=== PATIENT | female | born 1960 | race Native Hawaiian/Other Pacific Islander ===

== ENCOUNTER → 2016-08-31 | Outpatient (CLI) | payer OTHER ==
[~2016-08-31] MED LIST: ACET-1138 PO; ANAS1TAB19 PO; CALC500C70 PO; FSMD/70 PO
--- NOTE | 2016-09-01 13:34 | MAMMOGRAPHY REPORT ---
UNILATERAL LEFT DIGITAL SCREENING MAMMOGRAM TOMOSYNTHESIS WITH CAD: 08/31/2016 CLINICAL HISTORY: Routine screening examination of the left breast. Personal history of right breas t cancer status post mastectomy. TECHNIQUE: Left breast tomosynthesis in addition to standard 2D mammography and a left XCCL 2-D imag e were obtained. Current study was also evaluated with a Computer Aided Detection (CAD) system. COMPARISON: Comparison is made to exams dated: 08/27/2015 mammogram, 01/28/2014 mammogram, 12/23/2011 mammogram, 01/18/2013 mammogram, 09/01/2015 mammogram, and 09/01/2015 ultrasound - [facility]. BREAST COMPOSITION: There are scattered areas of fibroglandular density in the left breast. FINDINGS: There is mild vascular calcification and a benign rim calcification in the left breast. No suspicious mass, architectural distortion or cluster of suspicious microcalcifications is seen. IMPRESSION: ACR BI-RADS CATEGORY 1: NEGATIVE There is no mammographic evidence of malignancy. A 1 year screening mammogram is recommended. The p atient will receive written notification of the results. Approximately 10% of breast cancers are not detected with mammography. A negative mammographic repor t should not delay biopsy if a clinically suggestive mass is present. Shelley Valles M.D. ay/:08/31/2016 16:45:38 Market Developer: Keli THOMPSON([place])([place]), [facility] letter sent: Normal 1/2 BI-RADS Code: ACR BI-RADS Category 1: Negative
== END | disposition home or self-care (01) ==
LOC: C.MAMM 16:27
PROVIDERS: ATTEND Family Medicine
DX: Z12.31 Encounter for screening mammogram for malignant neoplasm of breast (principal); Z85.3 Personal history of malignant neoplasm of breast

== ENCOUNTER → 2016-09-06 | Outpatient (CLI) | payer OTHER | END | disposition home or self-care (01) | LOC: C.PAPS 11:38 | PROVIDERS: ATTEND Obstetrics & Gynecology | DX: Z12.4 Encounter for screening for malignant neoplasm of cervix (principal) ==

== ENCOUNTER → 2016-10-14 | Outpatient (CLI) | payer OTHER ==
[2016-10-14 16:40] LABS: HEMATOCRIT 38.6 % (37-47); MEAN CELL VOLUME 84.5 fL (80-100); MEAN CORPUSCULAR HEMOGLOBIN 29.8 pg (25-34); MEAN CORPUSCULAR HGB CONC 35.2 g/dl (32-36); PLATELET COUNT 137 K/uL (130-400); RED BLOOD COUNT 4.57 M/uL (4.2-5.4); WHITE BLOOD COUNT 4.76 K/uL (4.8-10.8)
[2016-10-14 16:50] LABS: PARTIAL THROMBOPLASTIN RATIO 1.1; PROTHROMBIN TIME (PATIENT) 10.7 SECONDS (9.0-12.0)
== END | disposition home or self-care (01) ==
LOC: C.CPL 15:35
PROVIDERS: ATTEND Physician Assistant
DX: Z01.810 Encounter for preprocedural cardiovascular examination (principal)

== ENCOUNTER → 2016-10-26 | Day surgery (SDC) | payer OTHER ==
[2016-10-22 15:38] VITALS: Ht 167.6 cm; Wt 83.6 kg
[~2016-10-26] VITALS: Ht 167.6 cm; Wt 83.6 kg
[~2016-10-26] MED LIST changes: -ACET-1138 PO; +ACETAMINOPHEN 325 MG TAB PO PRN; +ACETAMINOPHEN IV 1,000 MG in EMPTY BAG 0 ML IV PRN; +ACETAMINOPHEN IV 650 MG in EMPTY BAG 0 ML IV PRN; +ATROPINE SULFATE 0.1 MG/ML 5ML SYR IV PRN; +BACITRACIN 50000 UNIT VIAL ONE; +BUPIVACAINE 0.25% 2.5MG/ML PF 10 ML VIAL INFIL ONE; +CEFAZOLIN 2000 MG/60 ML D5W IV SCH; +CEFAZOLIN SOD 1 GM VIAL ONE; +EpHEDrine SULFATE INJ 50 MG/ML AMP IV PRN; +FENTANYL CITRATE INJ 50 MCG/1 ML 2 ML VIAL ONE; +GENTAMICIN SULFATE 40 MG/ML 2 ML VIAL ONE; +GLYCOPYRROLATE INJ 0.2 MG/ML VIAL ONE; +LACTATED RINGER'S 1000ML 1,000 ML IV SCH; +LIDOCAINE HCL 2% 2 ML VIAL (20MG/ML) ONE; +LIDOCAINE/EPINEPHRINE 1% INJ 50 ML VIAL ONE; +METOCLOPRAMIDE HCL INJ 5 MG/ML 2 ML VIAL IV PRN; +MIDAZOLAM HCL 1 MG/ML 2ML VIAL ONE; +NEOSTIGMINE METHYLSULFATE 5 MG/5 ML SYR ONE; +ONDANSETRON INJ 2 MG/ML 2 ML VIAL IV PRN; +ONDANSETRON INJ 2 MG/ML 2 ML VIAL ONE; +OXYCODONE/ACETAMINOPHEN 5-325 TAB PO PRN; +PROPOFOL IV EMULSION 10 MG/ML 20 ML VIAL IV ONE; +SCOPOLAMINE 1.5 MG TDSY TD ONE; +SODIUM CHLORIDE 0.9% 1000ML 1,000 ML IV SCH; +SODIUM CHLORIDE 0.9% INJ 10 ML VIAL ONE
--- NOTE | 2016-10-26 10:13 | History & Physical Bridge - [place] ---
H&P Re-Evaluation Bridge Note: I have examined the patient, reviewed the History & Physical and in the interval since the performance of the History & Physical I have noted the following changes of clinical significance: Port removal will be performed by Dr. Braun.
--- NOTE | 2016-10-26 12:05 | OPERATIVE REPORT ---
DATE OF OPERATION: 10/26/2016 NAME OF OPERATION: Port removal. PREOPERATIVE DIAGNOSIS: Port catheter in place with history of breast cancer. POSTOPERATIVE DIAGNOSIS: Same. STAFF SURGEON: Dr. Braun. TOP TAPER MACHINE: Dr. Carlisle and Sherita Rudd. ANESTHESIA: General. PROCEDURE IN DETAIL: The patient was brought in the operating room and placed on the operating table in supine position. Her chest was prepped and draped in usual fashion bilaterally. She had port in place in the left upper chest. The skin and subcutaneous tissue were anesthetized using 1% lidocaine with epinephrine. Incision made, carrying dissection down to the port, dissecting it from the capsule. The catheter was then removed with the port and then a tunnel was oversewn using 2-0 chromic catgut suture. Then the subcutaneous tissue reapproximated using 2-0 chromic catgut suture. Then the incision was closed by Dr. Carlisle and Sherita. I attest to the content of the Intraoperative Record and any orders documented therein. Any exceptio ns are noted below.
--- NOTE | 2016-10-26 13:34 | Discharge Instructions ---
Discharge Instructions Date of Service Oct 26, 2016. Admission Reason for Admission: Encounter For Breast Reconstruction Following Mast Discharge Discharge Diagnosis / Problem: encounter for breast reconstruction following mastectomy Discharge Goals Goal(s): Decrease discomfort Activity Recommendations Activity Limitations: per Instructions/Follow-up section ACTIVITY RECOMMENDATIONS: __Normal activities _x_No bending, lifting or straining __No driving __Driving allowed when you are off pain medications _x_Walking permitted __You should have help at home for ___ days DRESSINGS: __No dressings required _x_Keep dressings dry/in place until first office visit __Remove dressings ___ and leave dressings off __Apply ice ___ days __Remove dressings and reapply garment __Apply antibiotic ointment (Bacitracin, Neosporin, etc) to wounds 3-4 times/ day for 10 days BATHING: _x_Keep dressings dry _x_Sponge bathing permitted __Showering permitted _x_No swimming, hot tubs or soaking in a tub MEDICATIONS: Resume previous medications unless instructed otherwise by your surgeon. _x_Do not use aspirin, Motrin, Advil or Ibuprofen as these may promote bleeding. Please use Tylenol. _x_Prescription(s) provided: pain medication and antibiotics were provided at your last office visit. Begin antibiotics today OTHER INSTRUCTIONS: __Record drain output 2-3 times per day SPECIAL CARE INSTRUCTIONS: * It is normal to have a mild fever after surgery. If your temperature is higher than 101.5 degrees F, please call the office at [phone]. * Constipation is a typical side effect of pain medication. An over-the- counter stool softener will help relieve this. * Leaking around surgical drains may occur and should not cause concern. Sometimes these drains become clogged. If this happens, remove the bulb and milk the clot out of the tube, then replace the bulb. * Drainage from wounds after liposuction is normal and should be expected. Garments will become soiled. You should protect furniture and bedding. This drainage should mostly subside within 2-3 days. Leave garments in place unless instructed to remove them. * If you have unusual drainage from a wound or are concerned you have an infection or have any questions or concerns, please call the office at [phone]. FOLLOW UP VISIT: If not already scheduled, please call the office, , when you return home after surgery to schedule an appointment to be seen in _2__ days. . Current Hospital Diet Patient's current hospital diet: Discharge Diet Recommended Diet: Regular Diet Procedures Procedures Performed: Right Breast Implant Exchange For Silicone Breast Implant, Left Chest Wall And Left Breast Mastopexy by Dr. Carlisle; Removal A Port by Dr. Braun Pending Studies Studies pending at discharge: yes List of pending studies: pathologyn of left breast skin Medical Emergencies . Who to Call and When: Medical Emergencies: If at any time you feel your situation is an emergency, please call 911 immediately. . Non-Emergent Contact Non-Emergency issues call your: Primary Care Provider, Surgeon . "Provider Documentation" section prepared by Sherita Rudd. VTE Core Measure Inpt VTE Proph given/why not?: SCD's [place] Drug Monitoring Program Search Results: no issues identified
--- NOTE | 2016-10-26 13:49 | [facility] Post Operative Brief Note ---
Immediate Operative Summary Operative Date Oct 26, 2016. Pre-Operative Diagnosis Breast Reconstruction Following Mastectomy Post-Operative Diagnosis Same Procedure(s) Performed Right Breast Implant Exchange For Silicone Breast Implant, Left Chest Wall And Left Breast Mastopexy by Dr. Carlisle; Removal A Port by Dr. Braun Surgeon Dr. Carlisle, Dr. Braun Construction Services Technician Surgeon(s) Michelle Rudd PA-C Estimated Blood Loss 20 ml Findings 590 cc Ultra high profile implant selected for right, Left NAC pink and viable at close of case Specimens A.) Explanted A-Port B.) Left Breast Tissue Anesthesia General Complication(s) None Disposition Recovery Room / PACU
[2016-10-26] MEDS: FENTANYL CITRATE INJ 50 MCG/1 ML 2 ML VIAL IV PRN ×2 (14:28→14:33)
[2016-10-26 15:08] VITALS: TEMP 36.1
[2016-10-26 15:47] VITALS: BP 136/83; PULSE 59; O2SAT 99
--- NOTE | 2016-10-26 15:51 | Anesthesia Progress Nt - [facility] ---
Anesthesia Post Op Note Date & Time Oct 26, 2016 at 15:51 Vital Signs Pain Intensity: 4 Vital Signs Past 12 Hours Date Time Temp Pulse Resp B/P Pulse Ox O2 Delivery O2 Flow Rate FiO2 10/26/16 15:47 59 16 136/83 99 Room Air 10/26/16 15:08 36.1 65 16 145/85 95 Room Air 10/26/16 14:57 60 17 10/26/16 14:57 61 17 97 10/26/16 14:56 36.1 65 20 129/44 96 Room Air 10/26/16 14:56 129/44 10/26/16 14:52 63 16 97 10/26/16 14:52 63 16 10/26/16 14:50 146/89 10/26/16 14:47 56 15 100 10/26/16 14:47 56 15 10/26/16 14:45 147/80 10/26/16 14:42 66 16 10/26/16 14:42 65 16 99 10/26/16 14:40 141/73 10/26/16 14:37 56 18 10/26/16 14:37 59 18 99 10/26/16 14:35 119/77 10/26/16 14:32 69 7 10/26/16 14:32 69 7 94 10/26/16 14:30 134/89 10/26/16 14:27 75 19 10/26/16 14:27 78 19 96 10/26/16 14:25 145/84 10/26/16 14:22 71 18 10/26/16 14:22 71 18 99 10/26/16 14:20 141/81 10/26/16 14:17 79 21 99 10/26/16 14:17 79 21 10/26/16 14:15 128/76 10/26/16 14:12 75 18 10/26/16 14:12 75 18 98 10/26/16 14:10 144/70 10/26/16 14:08 141/101 10/26/16 14:07 36.8 79 16 141/101 98 Diffusion Mask 6 10/26/16 14:07 90 10/26/16 14:07 90 97 10/26/16 08:40 36.7 60 20 128/88 99 Room Air Notes Mental Status: alert / awake / arousable, participated in evaluation Pt Amnestic to Procedure: Yes Nausea / Vomiting: adequately controlled Pain: adequately controlled Airway Patency, RR, SpO2: stable & adequate BP & HR: stable & adequate Hydration State: stable & adequate Anesthetic Complications: no major complications apparent
--- NOTE | 2016-10-27 15:17 | OPERATIVE REPORT ---
DATE OF OPERATION: 10/26/2016 PREOPERATIVE DIAGNOSIS: Status post mastectomy for right breast cancer, status post first stage immediate reconstruction with tissue director of group counseling program and AlloDerm, acquired breast asymmetry. POSTOPERATIVE DIAGNOSIS: Same. PROCEDURE: Right breast implant exchange for silicone breast implant, left breast mastopexy. SURGEON: Dr. Nadia Carlisle. COLLEGE HIRE: Sherita Rudd PA-C. ANESTHESIA: General. COMPLICATIONS: None. INDICATION FOR THE PROCEDURE: The patient is a 56-year-old female who was diagnosed with right breast carcinoma, underwent mastectomy followed by delayed breast reconstruction using tissue director of group counseling program and AlloDerm. She completed chemotherapy and radiation therapy to the right breast and was due for implant exchange for silicone breast implant and simultaneous left breast mastopexy to improve symmetry. In addition, she desired removal A-port and this was performed by Dr. Braun during the same procedure. OPERATION AND FINDINGS: BRIEF DESCRIPTION OF THE PROCEDURE: The risks, benefits and alternatives of the procedure were explained to the patient who agreed and signed consent. She was identified and marked in the preoperative holding area. The left breast was marked using a standard Leon Pattern mastopexy. The patient was brought to the operating room where she was positioned supine and placed under general anesthesia without incident. Surgical site was prepped and draped sterilely. A time-out procedure was performed. The procedure began with Dr. Braun removing the A-port which is dictated separately. Following this, we performed closure of the excision site using 3-0 Vicryl interrupted dermal sutures and 3-0 Monocryl running subcuticular suture. Tegaderm was placed over the left nipple areolar complex in order to prevent contamination of the implant on the right side. Due to the history of radiation therapy and concern for wound healing complications I elected to make the access incision in the inframammary fold as opposed to the mastectomy incision. 1% lidocaine with epinephrine was used to anesthetize the planned incision along the right inframammary fold. A 15 blade scalpel was used to make the skin incision and the incision was deepened using electrocautery until the capsule surrounding the tissue director of group counseling program was identified. Due to the large size of the director of group counseling program and fill I punctured the director of group counseling program and drained all of the saline prior to removal. The tissue director of group counseling program was freed from the surrounding capsule and was removed through the inframammary fold incision. At this point, I selected a 700 mL ultrahigh profile [place] gel sizer. This was placed into the pocket and was clearly too big to facilitate tension free closure. It was removed. I then trialed a 590 mL ultrahigh profile which provided nice projection and fill to the pocket while still achieving tension free closure. The sizer was removed. The pocket was irrigated using triple antibiotic irrigation consisting of bacitracin, Ancef and gentamicin. The capsule was inspected and there was no evidence of bleeding. All instruments were wiped down using triple antibiotic irrigation and the skin was also cleansed prior to implantation. Gloves were changed prior to handling the permanent prosthesis. [place] 590 mL ultra high profile smooth round gel implant was selected and placed into the right breast pocket using lateral retractors. The pocket was then closed using 2-0 Vicryl interrupted sutures to close the capsule as well as the deep dermis followed by 3-0 Vicryl interrupted superficial dermal sutures, 3-0 Monocryl running subcuticular suture. Dermabond was applied. Attention was then turned to the left breast mastopexy. Planned incisions were again inspected prior to beginning. 1% lidocaine with epinephrine was used to anesthetize the planned incisions. A 38 mm cookie cutter was used to circumscribe the nipple-areolar complex. A 15 blade scalpel was used to make the circular incision into the mid dermis. The remainder of the Leon Pattern incisions were then made using a 15 blade scalpel in the mid dermis. The entire Leon Pattern with the exception of the nipple-areolar complex was deepithelialized using a 15 blade scalpel. Hemostasis was achieved with electrocautery. I then raised mastopexy flaps medially and laterally, leaving approximately 1 cm of soft tissue on the undersurface of the flaps. In order to facilitate closure, I did undermine the superior pole of the breast as well. Hemostasis was achieved with electrocautery. The nipple-areolar complex was inset into the keyhole using 2-0 Vicryl suture and the T-junction was closed utilizing 2-0 Vicryl suture. The deep dermis was closed using 2-0 Vicryl deep dermal sutures followed by 2-0 PDO running superficial dermal Quill suture along the inframammary fold and 3-0 Vicryl interrupted superficial dermal sutures around the nipple-areolar complex and vertical limb. Throughout the procedure, the nipple-areolar complex appeared pink and viable. Prior to complete closure, the patient was placed in seated position and noted to have acceptable symmetry between the breasts. Skin was closed using 3-0 Monocryl running subcuticular suture. Dermabond was applied to all incisions. Dry dressings and a surgical bra were placed. The procedure was tolerated well. The patient was awakened and transferred to recovery room in satisfactory condition. Sherita Rudd was present and scrubbed throughout the entire procedure and was instrumental in assisting in retraction during mastopexy and simultaneous wound closure. I attest to the content of the Intraoperative Record and any orders documented therein. Any exceptio ns are noted below.
== END | disposition home or self-care (01) ==
LOC: X.SURG 08:27
PROVIDERS: ATTEND Plastic Surgery
DX: Z42.1 Encounter for breast reconstruction following mastectomy (principal); Z85.3 Personal history of malignant neoplasm of breast; M19.90 Unspecified osteoarthritis, unspecified site; Z98.890 Other specified postprocedural states; Z83.3 Family history of diabetes mellitus; Z68.30 Body mass index [BMI] 30.0-30.9, adult

== ENCOUNTER → 2016-11-19 | Outpatient (CLI) | payer OTHER ==
[~2016-11-19] MED LIST changes: -ACETAMINOPHEN 325 MG TAB PO PRN; -ACETAMINOPHEN IV 1,000 MG in EMPTY BAG 0 ML IV PRN; -ACETAMINOPHEN IV 650 MG in EMPTY BAG 0 ML IV PRN; -ATROPINE SULFATE 0.1 MG/ML 5ML SYR IV PRN; -BACITRACIN 50000 UNIT VIAL ONE; -BUPIVACAINE 0.25% 2.5MG/ML PF 10 ML VIAL INFIL ONE; -CEFAZOLIN 2000 MG/60 ML D5W IV SCH; -CEFAZOLIN SOD 1 GM VIAL ONE; -EpHEDrine SULFATE INJ 50 MG/ML AMP IV PRN; -FENTANYL CITRATE INJ 50 MCG/1 ML 2 ML VIAL ONE; -GENTAMICIN SULFATE 40 MG/ML 2 ML VIAL ONE; -GLYCOPYRROLATE INJ 0.2 MG/ML VIAL ONE; -LACTATED RINGER'S 1000ML 1,000 ML IV SCH; -LIDOCAINE HCL 2% 2 ML VIAL (20MG/ML) ONE; -LIDOCAINE/EPINEPHRINE 1% INJ 50 ML VIAL ONE; -METOCLOPRAMIDE HCL INJ 5 MG/ML 2 ML VIAL IV PRN; -MIDAZOLAM HCL 1 MG/ML 2ML VIAL ONE; -NEOSTIGMINE METHYLSULFATE 5 MG/5 ML SYR ONE; -ONDANSETRON INJ 2 MG/ML 2 ML VIAL IV PRN; -ONDANSETRON INJ 2 MG/ML 2 ML VIAL ONE; -OXYCODONE/ACETAMINOPHEN 5-325 TAB PO PRN; -PROPOFOL IV EMULSION 10 MG/ML 20 ML VIAL IV ONE; -SCOPOLAMINE 1.5 MG TDSY TD ONE; -SODIUM CHLORIDE 0.9% 1000ML 1,000 ML IV SCH; -SODIUM CHLORIDE 0.9% INJ 10 ML VIAL ONE
--- NOTE | 2016-11-19 11:55 | DIAGNOSTIC IMAGING REPORT ---
LEFT UPPER EXTREMITY VENOUS DOPPLER CLINICAL HISTORY: Left arm swelling. COMPARISON STUDY: No previous studies for comparison. FINDINGS: The left internal jugular, subclavian, axillary, brachial, basilic, radial and ulnar veins are patent. IMPRESSION: No deep venous thrombus within the left upper extremity. Electronically signed by: Baron Brunner M.D. 11/19/2016 11:54 AM Dictated Date/Time: 11/19/2016 11:53 AM
--- NOTE | 2016-11-19 12:03 | DIAGNOSTIC IMAGING REPORT ---
LEFT SHOULDER MIN 2 VIEWS ROUTINE CLINICAL HISTORY: Left shoulder pain COMPARISON: None. DISCUSSION: No fractures or dislocations are visualized. There are no visible periarticular calcifications. IMPRESSION: No significant bony abnormalities identified. Electronically signed by: Mode Samson M.D. 11/19/2016 12:02 PM Dictated Date/Time: 11/19/2016 11:57 AM
== END | disposition home or self-care (01) ==
LOC: C.ULTRBC 10:52
PROVIDERS: ATTEND Family Medicine
DX: M79.89 Other specified soft tissue disorders (principal); M25.512 Pain in left shoulder

== ENCOUNTER → 2017-01-19 | Outpatient (CLI) | payer OTHER ==
[2017-01-19 14:03] VITALS: BP 119/83; PULSE 73; TEMP 36.5; O2SAT 97
--- NOTE | 2017-01-19 15:11 | Radiation Oncology Follow-Up ---
Radiation Oncology Follow-Up Date of Visit Jan 19, 2017. Reason For Visit 6 month follow-up Radiation Completion Date 06/23/16 Diagnosis (1) Breast cancer Status: Resolved Onset Date: 09/02/2015 Stage: ll (B) Permanent Comment: Abnormal right breast mammogram 08/27/2015 Status post ultrasound-guided biopsy 09/02/2015 revealing invasive lobular carcinoma Estrogen receptor positive, progesterone receptor positive, HER-2/ed negative Status post right mastectomy with sentinel lymph node biopsy 09/24/2015 pT2 pN1a M0 Chemotherapy: Dose dense chemotherapy with Adriamycin and Cytoxan for 4 cycles, completed 12/02/15 followed by dose dense Taxol for 4 cycles completed 02/03/16 Status post placement of tissue head bookkeeper 02/25/2016 now completely expanded Started AI therapy, Arimidex on 03/25/2016, due to delay in starting XRT secondary to reconstructive process. Will hold therapy during XRT and restart after completion of radiation therapy. Status post completion of radiation therapy 06/23/2016 received 6240 cGy Last Edited By: Dipika Salgado on Jun 28, 2016 15:12 History of Present Illness Ms. Lagos is a 55-year-old female without a family history of breast cancer. She underwent a bilateral digital screening mammogram on 08/27/2015. This was compared to a prior screening mammogram in January 2014. This more recent scan showed a 3.2 x 2.8 cm focal asymmetry with associated distortion in the 9:00 middle one third of the right breast. Additional imaging was spot compression, true lateral and targeted ultrasound was recommended. On 09/01/2015 the patient underwent a unilateral right digital diagnostic mammogram and targeted right breast ultrasound. There was a persistence of a focal asymmetry with suggested distortion at the 9:00 middle one third of the right breast without associated clustered microcalcifications. Accurate measurement was difficult but the focal asymmetry measured approximately 3.2 x 4.1 x 3.7 cm on mammogram. Targeted ultrasound was performed of the right rest and axilla. In the 9 o' clock position 3 cm from the nipple was a multilobulated hypoechoic solid appearing masses. The largest dimension in conglomerate measured approximately 2.9 x 1.5 x 2.1 cm. But the size is likely underestimated on ultrasound due to the multiple lobulations outside of the field of view. Within the right axilla a morphologically normal lymph node was identified without suspicious lymphadenopathy. This breast abnormality was suspicious and was given a BI- RADS Category 4 cc with biopsy recommended. On 11/01/2015 the patient underwent an ultrasound-guided biopsy of the right breast. This confirmed an invasive lobular carcinoma Cameron grade 2 of 3. The estrogen receptors were positive (100%, strong intensity, H-score: 300). Progesterone receptors were positive (5%, week intensity, H-score: 15). HER-2/ ed overexpression revealed the majority the tumor showing no HER-2 staining. The tissue by FISH analysis was negative. Ki-67 proliferation index was 12% ( intermediate, patchy expression noted). Case: [id number]. Patient was seen by Dr. Dayton Blanton and by Dr. Hubert Montejo. An Oncotype DX analysis was ordered. The decision was made to proceed with right breast mastectomy and sentinel node biopsy. This was performed on 09/24/2015. The mastectomy specimen showed a invasive lobular carcinoma with variable signet ring cell morphology and Tatyana grade 2 of 3. The tumor measured 3 .5 x 2 .5 x 2 0.5 cm. There was LCIS present. The margins were negative. On the main specimen invasive carcinoma was within 0.5 cm from the inferior margin and 1 cm from the deep margin. The inferior margin however was not a final margin is additional inferior margin tissue was excised and negative. There was no lymphovascular invasion, no perineural invasion appreciated. One lymph node was identified and revealed a deposit of metastatic carcinoma measuring 1.0 cm without extranodal extension. The AJCC pathologic stage was pT2 pN1, ER positive, PA positive, HER-2/ed negative. The patient's Oncotype DX recurrence score was reported with a recurrent score of 22. This places her in the intermediate risk category. Based on the pathologic findings and positive sentinel node Dr. Montejo reviewed potential adjuvant programs of dose dense Adriamycin and Cytoxan followed by Taxol with Neulasta support. A PET/CT scan was discussed for staging but ultimately was not performed. The patient agreed to the initiation of systemic adjuvant chemotherapy and a port was placed. The patient began her treatment and has completed the Adriamycin and Cytoxan and all but 1 cycle of Taxol. Her final Taxol dose is scheduled for February 03. The patient is met with Dr. Nadia Carlsile to discuss reconstructive options. We were also asked to see her in referral to discuss the role of adjuvant radiation. She had a tissue head bookkeeper placed. This was fully expanded. After the completion of her chemotherapy she returned and completed radiation therapy. She received 6240 cGy. This finished 06/23/2016. Interim History She denies any difficulty with her skin. This healed without difficulty. The hyperpigmentation is steadily improving. She's noted no masses or tenderness and no changes to the implanted breast. On 10/26/2016 she had removal of the tissue head bookkeeper and placement of the permanent implants. She does note that there is some excess skin on either side of the implant. This noted when she is sitting up. This is less noticeable when she is lying down. She has a slightly raised ridge area along the incision line of the left breast mammoplasty. She states she is using a prescribed cream from Dr. Carlisle. She 's noted no swelling of her arm. She is up-to-date on mammography of the left breast. Allergies Coded Allergies: No Known Allergies (Unverified , 10/22/16) Home Medications Scheduled Alendronate/Cholecalciferol (Fosamax+D 70MG/2800 Iu), 1 TABLET PO WK Anastrozole (Arimidex), 1 TAB PO DAILY Calcium/Vitamin D (Os-Paul 500 Plus D), 1 TAB PO BID Review of Systems Gastrointestinal: Symptoms: WNL Oral: Symptoms: No Problems Respiratory: Symptoms: WNL Urinary: Symptoms: WNL Skin: Symptoms: No Problems Breast: Right Upper Arm Measurement: 32.5 Right Mid Arm Measurement: 24.5 Right Wrist Measurement: 17.5 Left Upper Arm Measurement: 33.0 Left Mid Arm Measurement: 24.5 Left Wrist Measurement: 16.5 Physical Exam Vital Signs Date Time Temp Pulse Resp B/P (MAP) Pulse Ox O2 Delivery O2 Flow Rate FiO2 01/19/17 14:03 36.5 73 18 119/83 97 Pain: Patient Pain Scale: 0 - 10 Initial Pain Intensity: 0.0 Fatigue: None General Appearance: no apparent distress Eyes: normal inspection, EOMI ENT: normal ENT inspection, hearing grossly normal Neck: no adenopathy, thyroid normal Respiratory/Chest: lungs clear, no respiratory distress, no accessory muscle use Breast: Breast examination reveals an implant on the right. There are no masses or tenderness and no change of the axilla. Using the Phoenix score cosmesis she has a excellent outcome. When sitting up there is a noted small amount of tissue on either side of the implant. This is minimal and likely to be expected. The left breast showed no masses or tenderness no axillary adenopathy. There are scars from her prior gamma pexy. She has slight keloid formation in the center of the inframammary fold incision. Cardiovascular: regular rate, rhythm, no gallop, no murmur Neurologic/Psychiatric: no motor/sensory deficits, alert, normal mood/affect Skin: warm/dry Laboratory Studies Test 12/20/16 10:48 White Blood Count 4.49 K/uL (4.8-10.8) Red Blood Count 4.46 M/uL (4.2-5.4) Hemoglobin 13.2 g/dL (12.0-16.0) Hematocrit 39.2 % (37-47) Mean Corpuscular Volume 87.9 fL (80-100) Mean Corpuscular Hemoglobin 29.6 pg (25-34) Mean Corpuscular Hemoglobin Concent 33.7 g/dl (32-36) Platelet Count 157 K/uL (130-400) Mean Platelet Volume 8.8 fL (7.4-10.4) Neutrophils (%) (Auto) 48.6 % Lymphocytes (%) (Auto) 41.4 % Monocytes (%) (Auto) 6.7 % Eosinophils (%) (Auto) 2.9 % Basophils (%) (Auto) 0.2 % Neutrophils # (Auto) 2.18 K/uL (1.4-6.5) Lymphocytes # (Auto) 1.86 K/uL (1.2-3.4) Monocytes # (Auto) 0.30 K/uL (0.11-0.59) Eosinophils # (Auto) 0.13 K/uL (0-0.5) Basophils # (Auto) 0.01 K/uL (0-0.2) RDW Standard Deviation 42.9 fL (36.4-46.3) RDW Coefficient of Variation 13.3 % (11.5-14.5) Immature Granulocyte % (Auto) 0.2 % Immature Granulocyte # (Auto) 0.01 K/uL (0.00-0.02) Sodium Level 141 mmol/L (136-145) Potassium Level 4.1 mmol/L (3.5-5.1) Chloride Level 108 mmol/L (98-107) Carbon Dioxide Level 24 mmol/L (21-32) Anion Gap 9.0 mmol/L (3-11) Blood Urea Nitrogen 14 mg/dl (7-18) Creatinine 0.60 mg/dl (0.60-1.20) Est Creatinine Clear Calc Drug Dose 113.9 ml/min Estimated GFR () 118.1 Estimated GFR (Non- 101.9 BUN/Creatinine Ratio 22.8 (10-20) Random Glucose 111 mg/dl (70-99) Calcium Level 9.1 mg/dl (8.5-10.1) Total Bilirubin 0.3 mg/dl (0.2-1) Aspartate Amino Transferase (AST) 22 U/L (15-37) Alanine Aminotransferase (ALT) 30 U/L (12-78) Alkaline Phosphatase 63 U/L (45-117) Lactate Dehydrogenase 165 U/L (84-246) Total Protein 7.0 gm/dl (6.4-8.2) Albumin 3.4 gm/dl (3.4-5.0) Globulin 3.6 gm/dl (2.5-4.0) Albumin/Globulin Ratio 0.9 (0.9-2) Additional Studies Patient: ERINN LAGOS [facility] Rec: [id number] Address1: [address] [place] [address] [address] Address2: [facility] ID: [id number] Date: 1960 Sex: F Ref Phy: Shola Salazar D.O.Int.Med. Att Phy: Shola Salazar D.O.Int.Med. Negra Phy: Shola Salazar D.O.Int.Med. Inter Phy: Shelley Valles MD [facility] Zip: [place] [address] SC: [id number] Report #: [id number] Clinical Appeals Rn: [id number] Diagnosis: ASYMPTOMATIC Service Date: 08/31/16 MNE: [id number] Ordering Dr: Shola Salazar D.O. CC: Shola Salazar D.O.Int.Med. CONF: DICTATED BY: Shelley Valles MD MAMMOGRAPHY REPORT UNILATERAL LEFT DIGITAL SCREENING MAMMOGRAM TOMOSYNTHESIS WITH CAD: 08/31/2016 CLINICAL HISTORY: Routine screening examination of the left breast. Personal history of right breast cancer status post mastectomy. TECHNIQUE: Left breast tomosynthesis in addition to standard 2D mammography and a left XCCL 2-D image were obtained. Current study was also evaluated with a Computer Aided Detection (CAD) system. COMPARISON: Comparison is made to exams dated: 08/27/2015 mammogram, 01/28/2014 mammogram, 12/23/2011 mammogram, 01/18/2013 mammogram, 09/01/2015 mammogram, and ultrasound - [facility]. BREAST COMPOSITION: There are scattered areas of fibroglandular density in the left breast. FINDINGS: There is mild vascular calcification and a benign rim calcification in the left breast. No suspicious mass, architectural distortion or cluster of suspicious microcalcifications is seen. IMPRESSION: ACR BI-RADS CATEGORY 1: NEGATIVE There is no mammographic evidence of malignancy. A 1 year screening mammogram is recommended. The patient will receive written notification of the results. Approximately 10% of breast cancers are not detected with mammography. A negative mammographic report should not delay biopsy if a clinically suggestive mass is present. Shelley Valles M.D. ay/:08/31/2016 16:45:38 [employer] Worker: Keli THOMPSON([place])(M), [facility] letter sent: Normal 1/2 BI-RADS Code: ACR BI-RADS Category 1: Negative Dictated by: Shelley Valles MD Signed by: Shelley Valles MD Assessment & Plan Plan: Continue annual mammography on the left. Continue regular follow-up with Dr. Montejo and Dr. Salazar. She asked that her appointment with Dr. Carlisle be moved up for recheck evaluation of the implant in the incision line on the left. We asked her to return to our office in 1 year. She may call if she has any questions or concerns in the interim. Total Time In Follow-Up I spent 20 minutes speaking to the patient performing examination. Estrogen 15 minutes reviewing information in completing this note. Copy To Hubert Montejo D.O.; Shola Salazar D.O.Int.Med.; Nadia Carlisle MD Problem Qualifiers (1) Breast cancer: Breast location: central portion of breast Estrogen receptor status: positive Patient sex: female Laterality: right Qualified Codes: C50.111 - Malignant neoplasm of central portion of right female breast; Z17.0 - Estrogen receptor positive status [ER+]
== END | disposition home or self-care (01) ==
LOC: C.ONC 13:52
PROVIDERS: ATTEND Physician Assistant Medical
DX: Z08 Encounter for follow-up examination after completed treatment for malignant neoplasm (principal); Z92.3 Personal history of irradiation; Z85.3 Personal history of malignant neoplasm of breast

== ENCOUNTER → 2017-07-15 | Outpatient (CLI) | payer OTHER ==
[~2017-07-15] MED LIST changes: -ANAS1TAB19 PO; +ANAS1TAB59 PO
[2017-07-15 15:47] LABS: ALBUMIN 3.5 gm/dl (3.4-5.0); ALT/SGPT 22 U/L (12-78); AST/SGOT 14 U/L (15-37); BLOOD UREA NITROGEN 14 mg/dl (7-18); CALCIUM 9.1 mg/dl (8.5-10.1); CARBON DIOXIDE 26 mmol/L (21-32); CREATININE 0.62 mg/dl (0.60-1.20); GLUCOSE 89 mg/dl (70-99); SODIUM 139 mmol/L (136-145)
[2017-07-15 15:49] LABS: ALKALINE PHOSPHATASE 65 U/L (45-117); CHOLESTEROL 227 mg/dl (0-200); LDL CHOLESTEROL CALCULATED 129 mg/dl; TOTAL PROTEIN 7.3 gm/dl (6.4-8.2)
== END | disposition home or self-care (01) ==
LOC: C.LABBC 10:45
PROVIDERS: ATTEND Nurse Practitioner Adult Health
DX: Z00.00 Encounter for general adult medical examination without abnormal findings (principal); Z13.220 Encounter for screening for lipoid disorders; M85.80 Other specified disorders of bone density and structure, unspecified site

== ENCOUNTER → 2017-09-02 | Outpatient (CLI) | payer OTHER ==
[~2017-09-02] MED LIST changes: +ANAS1TAB19 PO; -ANAS1TAB59 PO
--- NOTE | 2017-09-02 14:41 | MAMMOGRAPHY REPORT ---
UNILATERAL LEFT DIGITAL DIAGNOSTIC MAMMOGRAM TOMOSYNTHESIS WITH CAD: 09/02/2017 CLINICAL HISTORY: 57-year-old woman with a personal history of right breast cancer status post mastec trevor presents for annual mammographic evaluation of the left breast. She reports interval left reduc tion mammoplasty since prior mammogram. TECHNIQUE: Left breast tomosynthesis in addition to standard 2D mammography was performed. Current st udy was also evaluated with a Computer Aided Detection (CAD) system. COMPARISON: Comparison is made to exams dated: 08/31/2016 mammogram, 08/27/2015 mammogram, 01/28/2014 m ammogram, 01/18/2013 mammogram, and 12/23/2011 mammogram - [facility]. BREAST COMPOSITION: There are scattered areas of fibroglandular density in the left breast. FINDINGS: There is evidence of a reduction mammoplasty comparing to the prior mammograms performed . There are a few loosely grouped benign round and punctate microcalcifications in the left breast. Minimal vascular calcification. No suspicious mass, architectural distortion or cluster of microcalcifications is seen. IMPRESSION: ACR BI-RADS CATEGORY 2: BENIGN Expected postsurgical changes in the left breast. There is no mammographic evidence of malignancy. Left mammography is recommended in one year, and would recommend remaining a diagnostic patient, give n the personal history of right breast cancer, in case any additional mammographic views and/or ultra sound may be needed. These results and recommendations were discussed with the patient at the time of the exam. Approximately 10% of breast cancers are not detected with mammography. A negative mammographic report should not delay biopsy if a clinically suggestive mass is present. Shelley Valles M.D. ay/:09/02/2017 12:18:51 Advanced Registered Nurse: Sylvester GUZMAN)(Vas[place]y), [facility] letter sent: Normal 1/2 BI-RADS Code: ACR BI-RADS Category 2: Benign
== END | disposition home or self-care (01) ==
LOC: C.MAMM 10:47
PROVIDERS: ATTEND Nurse Practitioner Family
DX: Z12.31 Encounter for screening mammogram for malignant neoplasm of breast (principal); Z90.11 Acquired absence of right breast and nipple; Z85.3 Personal history of malignant neoplasm of breast

== ENCOUNTER → 2017-09-20 | Outpatient (CLI) | payer OTHER ==
[2017-09-20 13:37] VITALS: BP 136/82; PULSE 81; TEMP 36.7; O2SAT 98
--- NOTE | 2017-09-20 14:50 | Radiation Oncology Follow-Up ---
Radiation Oncology Follow-Up Date of Visit Sep 20, 2017. Reason For Visit Six-month follow-up Radiation Completion Date 06/23/16 Diagnosis (1) Breast cancer Status: Resolved Onset Date: 09/02/2015 Stage: ll Permanent Comment: Abnormal right breast mammogram 08/27/2015 Status post ultrasound-guided biopsy 09/02/2015 revealing invasive lobular carcinoma Estrogen receptor positive, progesterone receptor positive, HER-2/ed negative Status post right mastectomy with sentinel lymph node biopsy 09/24/2015 pT2 pN1a M0 Chemotherapy: Dose dense chemotherapy with Adriamycin and Cytoxan for 4 cycles, completed 12/02/15 followed by dose dense Taxol for 4 cycles completed 02/03/16 Status post placement of tissue collections analyst 02/25/2016 now completely expanded Started AI therapy, Arimidex on 03/25/2016, due to delay in starting XRT secondary to reconstructive process. Will hold therapy during XRT and restart after completion of radiation therapy. Status post completion of radiation therapy 06/23/2016 received 6240 cGy Last Edited By: Dipika Salgado on Jun 28, 2016 15:12 History of Present Illness Ms. Lagos is without a family history of breast cancer. She underwent a bilateral digital screening mammogram on 08/27/2015. This was compared to a prior screening mammogram in January 2014. This more recent scan showed a 3.2 x 2.8 cm focal asymmetry with associated distortion in the 9:00 middle one third of the right breast. Additional imaging was spot compression, true lateral and targeted ultrasound was recommended. On 09/01/2015 the patient underwent a unilateral right digital diagnostic mammogram and targeted right breast ultrasound. There was a persistence of a focal asymmetry with suggested distortion at the 9:00 middle one third of the right breast without associated clustered microcalcifications. Accurate measurement was difficult but the focal asymmetry measured approximately 3.2 x 4.1 x 3.7 cm on mammogram. Targeted ultrasound was performed of the right rest and axilla. In the 9 o' clock position 3 cm from the nipple was a multilobulated hypoechoic solid appearing masses. The largest dimension in conglomerate measured approximately 2.9 x 1.5 x 2.1 cm. But the size is likely underestimated on ultrasound due to the multiple lobulations outside of the field of view. Within the right axilla a morphologically normal lymph node was identified without suspicious lymphadenopathy. This breast abnormality was suspicious and was given a BI- RADS Category 4 cc with biopsy recommended. On 11/01/2015 the patient underwent an ultrasound-guided biopsy of the right breast. This confirmed an invasive lobular carcinoma [place] grade 2 of 3. The estrogen receptors were positive (100%, strong intensity, H-score: 300). Progesterone receptors were positive (5%, week intensity, H-score: 15). HER-2/ ed overexpression revealed the majority the tumor showing no HER-2 staining. The tissue by FISH analysis was negative. Ki-67 proliferation index was 12% ( intermediate, patchy expression noted). Case: [id number]. Patient was seen by Dr. Dayton Blanton and by Dr. Hubert Montejo. An Oncotype DX analysis was ordered. The decision was made to proceed with right breast mastectomy and sentinel node biopsy. This was performed on 09/24/2015. The mastectomy specimen showed a invasive lobular carcinoma with variable signet ring cell morphology and [place] grade 2 of 3. The tumor measured 3 .5 x 2 .5 x 2 0.5 cm. There was LCIS present. The margins were negative. On the main specimen invasive carcinoma was within 0.5 cm from the inferior margin and 1 cm from the deep margin. The inferior margin however was not a final margin is additional inferior margin tissue was excised and negative. There was no lymphovascular invasion, no perineural invasion appreciated. One lymph node was identified and revealed a deposit of metastatic carcinoma measuring 1.0 cm without extranodal extension. The AJCC pathologic stage was pT2 pN1, ER positive, FL positive, HER-2/ed negative. The patient's Oncotype DX recurrence score was reported with a recurrent score of 22. This places her in the intermediate risk category. Based on the pathologic findings and positive sentinel node Dr. Montejo reviewed potential adjuvant programs of dose dense Adriamycin and Cytoxan followed by Taxol with Neulasta support. A PET/CT scan was discussed for staging but ultimately was not performed. The patient agreed to the initiation of systemic adjuvant chemotherapy and a port was placed. The patient began her treatment and has completed the Adriamycin and Cytoxan and all but 1 cycle of Taxol. Her final Taxol dose is scheduled for February 03. The patient is met with Dr. Nadia Carlisle to discuss reconstructive options. We were also asked to see her in referral to discuss the role of adjuvant radiation. She had a tissue collections analyst placed. This was fully expanded. After the completion of her chemotherapy she returned and completed radiation therapy. She received 6240 cGy. This finished 06/23/2016. Interim History She has been doing well over the past 6 months. She has noted no changes to the treated area. She has noted no masses or tenderness and no change of the axilla. She has had no swelling of her arm. She is up-to-date on mammography for the left breast. She continues on Arimidex. She may be moving back to her [place]. If so she will plan to stop in the medical records and get a copy of her chart. She also will need to stop in in medical oncology to get records from their department. She may be traveling back and forth and be in the area in a year. She will forward a test results to our department also. Allergies Coded Allergies: No Known Allergies (Unverified , 10/22/16) Home Medications Scheduled Alendronate/Cholecalciferol (Fosamax+D 70MG/2800 Iu), 1 TABLET PO WK Anastrozole (Arimidex), 1 TAB PO DAILY Calcium/Vitamin D (Os-Paul 500 Plus D), 1 TAB PO BID Review of Systems Gastrointestinal: Symptoms: WNL GI Comments: Occ Nausea Oral: Symptoms: No Problems Respiratory: Symptoms: WNL Urinary: Symptoms: WNL Skin: Symptoms: No Problems Breast: Right Upper Arm Measurement: 33.5 Right Mid Arm Measurement: 24.5 Right Wrist Measurement: 16.4 Left Upper Arm Measurement: 33.0 Left Mid Arm Measurement: 24.8 Left Wrist Measurement: 16.4 Arm Dominence: Right Physical Exam Vital Signs Date Time Temp Pulse Resp B/P (MAP) Pulse Ox O2 Delivery O2 Flow Rate FiO2 09/20/17 13:37 36.7 81 16 136/82 98 Fatigue: None General Appearance: no apparent distress Eyes: normal inspection, EOMI ENT: normal ENT inspection, hearing grossly normal Neck: no adenopathy, thyroid normal Respiratory/Chest: lungs clear, no respiratory distress, no accessory muscle use Breast: Breast examination reveals implant on the right. Tattooed nipple. There are no masses or tenderness and no axillary adenopathy. There is minimal fibrous changes. Small amount of scarring in the inframammary fold area. On the left there are post reduction surgical changes. There are no masses or tenderness and no axillary adenopathy. Cardiovascular: regular rate, rhythm, no gallop, no murmur Extremities: no pedal edema Neurologic/Psychiatric: no motor/sensory deficits, alert, normal mood/affect Skin: warm/dry Pain Management Patient Reports Pain: No Pain Management Plan She denies pain therefore requires no pain management. Laboratory Laboratory Results: not applicable Pathology Pathology Results: not applicable Imaging Imaging Studies: were reviewed, and pertinent findings noted below Imaging Comments Patient: ERINN LAGOS [facility] Rec: [id number] Address[address]: [address] Address2: Acct ID: [id number] Date: 1960 Sex: F Ref Phy: Oumou Richard CRNP Att Phy: Oumou Richard CRNP Negra Phy: Shelley Damon CRNP Inter Phy: Shelley Valles MD [facility] Zip: [place] [address] SC: C.MAMM Report #: [id number] First Responder: SIN Diagnosis: ASYMPTOMATIC/HX RIGHT MASTECTOMY Service Date: 09/02/17 MNE: [id number] Ordering Dr: Oumou Richard CC: Oumou Richard CRNP CONF: DICTATED BY: Shelley Valles MD MAMMOGRAPHY REPORT UNILATERAL LEFT DIGITAL DIAGNOSTIC MAMMOGRAM TOMOSYNTHESIS WITH CAD: 09/02/2017 CLINICAL HISTORY: 57-year-old woman with a personal history of right breast cancer status post mastectomy presents for annual mammographic evaluation of the left breast. She reports interval left reduction mammoplasty since prior mammogram. TECHNIQUE: Left breast tomosynthesis in addition to standard 2D mammography was performed. Current study was also evaluated with a Computer Aided Detection (CAD ) system. COMPARISON: Comparison is made to exams dated: 08/31/2016 mammogram, 08/27/2015 mammogram, 01/28/2014 mammogram, 01/18/2013 mammogram, and 12/23/2011 mammogram - [facility]. BREAST COMPOSITION: There are scattered areas of fibroglandular density in the left breast. FINDINGS: There is evidence of a reduction mammoplasty comparing to the prior mammograms performed 08/31/2016. There are a few loosely grouped benign round and punctate microcalcifications in the left breast. Minimal vascular calcification. No suspicious mass, architectural distortion or cluster of microcalcifications is seen. IMPRESSION: ACR BI-RADS CATEGORY 2: BENIGN Expected postsurgical changes in the left breast. There is no mammographic evidence of malignancy. Left mammography is recommended in one year, and would recommend remaining a diagnostic patient, given the personal history of right breast cancer, in case any additional mammographic views and/or ultrasound may be needed. These results and recommendations were discussed with the patient at the time of the exam. Approximately 10% of breast cancers are not detected with mammography. A negative mammographic report should not delay biopsy if a clinically suggestive mass is present. Shelley Valles M.D. 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 letter sent: Normal 1/2 BI-RADS Code: ACR BI-RADS Category 2: Benign Dictated by: Shelley Valles MD Signed by: Shelley Valles MD Assessment & Plan Plan: Continue regular follow-up with medical oncology. I expressed to her that she should have breast examination at least twice a year. She will follow the annual schedule of mammography. She may be moving back to her home country. She will obtain medical records to take with her. She did want to schedule appointment for 1 year in case she is back in [facility] that time. An appointment was given. She will forward any new studies to our office. We reviewed with her that she will need to go to medical records to obtain her chart information. She will need to go to medical oncology to discuss with them her medical records. She may call our office if she has any questions or concerns. We did discuss regular follow-up. NCCN guidelines are followed. This is done through the medical oncology office. She continues on Arimidex. Total Time In Follow-Up I spent 20 minutes speaking to the patient and performing examination. I spent 15 minutes reviewing information and completing this note. Problem Qualifiers (1) Breast cancer: Breast location: central portion of breast Estrogen receptor status: positive Patient sex: female Laterality: right Qualified Codes: C50.111 - Malignant neoplasm of central portion of right female breast; Z17.0 - Estrogen receptor positive status [ER+]
== END | disposition home or self-care (01) ==
LOC: C.ONC 13:19
PROVIDERS: ATTEND Physician Assistant Medical
DX: Z08 Encounter for follow-up examination after completed treatment for malignant neoplasm (principal); Z92.3 Personal history of irradiation; Z85.3 Personal history of malignant neoplasm of breast

== ENCOUNTER → 2017-10-07 | Outpatient (CLI) | payer OTHER | END | disposition home or self-care (01) | LOC: C.PAPS 13:50 | PROVIDERS: ATTEND Obstetrics & Gynecology | DX: Z12.4 Encounter for screening for malignant neoplasm of cervix (principal); N95.2 Postmenopausal atrophic vaginitis ==

== ENCOUNTER → 2018-03-03 | Outpatient (CLI) | payer OTHER ==
[~2018-03-03] MED LIST changes: -ANAS1TAB19 PO; +ANAS1TAB59 PO
[2018-03-03 14:06] LABS: ALBUMIN 3.6 gm/dl (3.4-5.0); ALKALINE PHOSPHATASE 67 U/L (45-117); ALT/SGPT 21 U/L (12-78); AST/SGOT 15 U/L (15-37); BLOOD UREA NITROGEN 14 mg/dl (7-18); CALCIUM 8.6 mg/dl (8.5-10.1); CARBON DIOXIDE 23 mmol/L (21-32); CHOLESTEROL 205 mg/dl (0-200); CREATININE 0.64 mg/dl (0.60-1.20); GLUCOSE 95 mg/dl (70-99); LDL CHOLESTEROL CALCULATED 113 mg/dl; POTASSIUM 3.9 mmol/L (3.5-5.1); SODIUM 140 mmol/L (136-145); TOTAL PROTEIN 7.2 gm/dl (6.4-8.2)
== END | disposition home or self-care (01) ==
LOC: C.LABBC 10:43
PROVIDERS: ATTEND Nurse Practitioner Adult Health
DX: Z13.220 Encounter for screening for lipoid disorders (principal); M85.80 Other specified disorders of bone density and structure, unspecified site; R73.09 Other abnormal glucose